=== PATIENT | male | born 2000 | race Caucasian/White ===

== ENCOUNTER 2023-11-13 04:36 | Emergency (ER) | payer BC ==
[2023-11-13] MEDS ORDERED: Ketorolac Tromethamine 30 MG (1 mL) VIAL ONE (04:58)
[2023-11-13] MEDS ORDERED: Dexamethasone 10 MG/ML VIAL ONE (05:00)
== END 2023-11-13 06:02 | disposition home or self-care (01) ==
LOC: ERS 04:36
DX: K12.2 Cellulitis and abscess of mouth (principal); J02.9 Acute pharyngitis, unspecified
CPT/HCPCS: 87081; 87430; 99282; J1100; J1885

== ENCOUNTER 2024-02-07 20:27 | Emergency (ER) | payer BC ==
[2024-02-07] MEDS ORDERED: Acetaminophen 500 MG TAB ONE (21:08)
== END 2024-02-07 21:56 | disposition home or self-care (01) ==
LOC: ERS 20:27
DX: J06.9 Acute upper respiratory infection, unspecified (principal)
CPT/HCPCS: 71045; 87428